=== PATIENT | female | born 1980 | race Caucasian/White ===

== ENCOUNTER → 2016-10-08 | Outpatient (REF) | payer OTHER ==
[~2016-10-08] MED LIST: /ONDA4TA; /TAMS4CA PO; AUG875 PO; BACT400T; BACT800T5 PO; CEPH500C; CIPR500T4; COMBIVENT PO; DILA2TAB; KEFLEX250 PO; KETO10TAB PO; MACR100C3 PO; MOTRIN800 PO; NASONEX NASAL; PERC2.5T PO; PERC5TAB PO; PERC5TAB6 PO; PERC5TAB8; PYRIDIUM; VALTREX100 PO; VICO5TAB; ZITHROZPAK PO; ZOFR4TAB3 PO; ZYRTEC10 PO; keflex PO; percocet PO; pyridium PO
== END ==
LOC: M LAB REF 16:34
PROVIDERS: ATTEND Surgery
DX: Z00.00 Encounter for general adult medical examination without abnormal findings (principal)

== ENCOUNTER → 2017-06-10 | Outpatient (REF) | payer OTHER ==
[~2017-06-10] MED LIST changes: +PERC5TAB12 PO; -PERC5TAB6 PO
== END ==
LOC: M SFHCWAGY 11:09
PROVIDERS: ATTEND Nurse Practitioner Women's Health
DX: Z12.4 Encounter for screening for malignant neoplasm of cervix (principal)

== ENCOUNTER 2018-05-25 13:28 | Emergency (ER) | payer OTHER ==
[2018-05-25 14:57] LABS: BASO # 0.1 10^3/uL (0.0-0.2); BASO % 0.8 % (0.0-1.0); EOS # 0.2 10^3/uL (0.0-0.50); EOS % 1.8 % (0.0-3.0); HEMATOCRIT 41.3 % (36.0-47.0); HEMOGLOBIN 13.7 g/dl (12.0-15.5); IMMATURE GRANULOCYTE % 0.5 % (0-3.0); LYMPH # 2.3 10^3/uL (1.5-4.5); MEAN CORPUSCULAR HEMOGLOBIN 29.3 pg (27.0-33.0); MEAN CORPUSCULAR HGB CONC 33.2 g/dl (32.0-36.5); MEAN CORPUSCULAR VOLUME 88.2 fl (80.0-96.0); MONO % 7.9 % (0.0-5.0); PLATELET COUNT, AUTOMATED 377 10^3/uL (150-450); RED BLOOD COUNT 4.68 10^6/uL (4.00-5.40); RED CELL DISTRIBUTION WIDTH 13.2 % (11.5-14.5); WHITE BLOOD COUNT 12.6 10^3/uL (4.0-10.0)
[2018-05-25 15:10] LABS: ANION GAP 6 MEQ/L (8-16); BLOOD UREA NITROGEN 15 MG/DL (7-18); C REACTIVE PROTEIN QUANTITATIV < 0.30 MG/DL (0.00-0.30); CALCIUM LEVEL 9.5 MG/DL (8.5-10.1); CARBON DIOXIDE LEVEL 24 MEQ/L (21-32); CHLORIDE LEVEL 111 MEQ/L (98-107); CREATININE FOR GFR 0.65 MG/DL (0.55-1.30); GLOMERULAR FILTRATION RATE > 60.0 (>60); GLUCOSE, FASTING 61 MG/DL (70-100); POTASSIUM SERUM 3.6 MEQ/L (3.5-5.1); SODIUM LEVEL 141 MEQ/L (136-145)
[2018-05-25 15:56] LABS: ERYTHROCYTE SEDIMENTATION RATE 11 mm/hr (0-20)
== END 2018-05-25 17:23 | disposition home or self-care (01) ==
LOC: M ED 13:28
DX: S90.32XA Contusion of left foot, initial encounter (principal); M77.32 Calcaneal spur, left foot; X58.XXXA Exposure to other specified factors, initial encounter; Y92.89 Other specified places as the place of occurrence of the external cause; F17.200 Nicotine dependence, unspecified, uncomplicated
CPT/HCPCS: 73650

== ENCOUNTER 2018-06-10 10:19 | Emergency (ER) | payer OTHER ==
[2018-06-10] MEDS: NORCO, ANEXSIA 5/325MG TABLET (HYDROcodone/ACETAMINOPHEN) PO (11:26)
[2018-06-10] MEDS: LIDOCAINE 1% MDV 20ML VIAL SC (11:30)
== END 2018-06-10 13:06 | disposition home or self-care (01) ==
LOC: M ED 10:19
DX: S51.812A Laceration without foreign body of left forearm, initial encounter (principal); S51.832A Puncture wound without foreign body of left forearm, initial encounter; W54.0XXA Bitten by dog, initial encounter; Y92.018 Other place in single-family (private) house as the place of occurrence of the external cause; Z88.0 Allergy status to penicillin; Z88.1 Allergy status to other antibiotic agents; F17.210 Nicotine dependence, cigarettes, uncomplicated
CPT/HCPCS: 73090

== ENCOUNTER 2018-08-24 00:37 | Emergency (ER) | payer OTHER ==
[2018-08-24] MEDS: DOXEPIN 10 MG CAP PO (01:34)
== END 2018-08-24 01:47 | disposition home or self-care (01) ==
LOC: M ED 00:37
DX: L29.9 Pruritus, unspecified (principal); I10 Essential (primary) hypertension
CPT/HCPCS: 99283

== ENCOUNTER 2019-12-03 12:49 | Emergency (ER) | payer OTHER ==
[~2019-12-03] VITALS: Ht 157.5 cm; Wt 72.7 kg
[~2019-12-03 12:49] MED LIST changes: -/ONDA4TA; -/TAMS4CA PO; +DIFL150T PO; +DOXE10CA PO; +DOXY100C37 PO; +FLAG500T PO; +FLOM0.4C39 PO; +IBUP-1022 PO; +LISI-542; +MELO15TA28; +ONDA-1; +ONDA-228 PO; +PARO15TA; +TRAZ-257; -ZOFR4TAB3 PO
[2019-12-03] MEDS ORDERED: ACET-683 PO ×2 (12:56→13:26)
[2019-12-03] MEDS ORDERED: ROBA750T4 PO (13:26)
[2019-12-03] MEDS ORDERED: IBUP-1022 PO (13:26)
[2019-12-03] MEDS ORDERED: KETOROLAC 60 MG/2 ML VIAL (J1885) IM ONE (13:30)
[2019-12-03 13:36] VITALS: BP 143/87
== END 2019-12-03 13:44 | disposition home or self-care (01) ==
LOC: M ED 12:49
DX: S16.1XXA Strain of muscle, fascia and tendon at neck level, initial encounter (principal); S13.4XXA Sprain of ligaments of cervical spine, initial encounter; V43.52XA Car driver injured in collision with other type car in traffic accident, initial encounter; Y92.9 Unspecified place or not applicable; Y93.9 Activity, unspecified; Y99.9 Unspecified external cause status; F41.9 Anxiety disorder, unspecified; F32.9 Major depressive disorder, single episode, unspecified; J45.909 Unspecified asthma, uncomplicated; Z87.59 Personal history of other complications of pregnancy, childbirth and the puerperium; Z96.0 Presence of urogenital implants; F17.200 Nicotine dependence, unspecified, uncomplicated; Z88.0 Allergy status to penicillin; Z88.1 Allergy status to other antibiotic agents; Z88.8 Allergy status to other drugs, medicaments and biological substances
CPT/HCPCS: 96372; 99283; J1885

== ENCOUNTER 2019-12-04 21:46 | Emergency (ER) | payer OTHER ==
[~2019-12-04] VITALS: Ht 157.5 cm; Wt 66.8 kg
[~2019-12-04 21:46] MED LIST changes: +ACET-683 PO; +ROBA750T4 PO
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
[2019-12-04 22:55] VITALS: BP 136/78
[2019-12-04] MEDS ORDERED: traMADol 50 MG TAB PO ONE (23:00)
== END 2019-12-04 22:57 | disposition home or self-care (01) ==
LOC: M ED 21:46
DX: S13.4XXA Sprain of ligaments of cervical spine, initial encounter (principal); X58.XXXA Exposure to other specified factors, initial encounter; Y92.89 Other specified places as the place of occurrence of the external cause; Z88.0 Allergy status to penicillin; Z88.1 Allergy status to other antibiotic agents; F17.210 Nicotine dependence, cigarettes, uncomplicated

== ENCOUNTER 2024-01-17 22:29 | Emergency (ER) | payer OTHER ==
[~2024-01-17] VITALS: Ht 157.5 cm; Wt 64.9 kg
[~2024-01-17 22:29] MED LIST changes: +DOXY-323 PO; -DOXY100C37 PO; -LISI-542; +LISI5TAB11; -PARO15TA; +PARO30TA4
[2024-01-17 22:30] VITALS: BP 169/101; TEMP 98.8; O2SAT 98
[2024-01-17] MEDS ORDERED: CLEO300C2 PO (23:26)
[2024-01-17] MEDS: IBUPROFEN 600MG TAB PO ONE (23:32)
[2024-01-17] MEDS: CLINDAMYCIN 150MG CAPSULE PO ONE (23:32)
== END 2024-01-17 23:39 | disposition home or self-care (01) ==
LOC: M ED 22:29
DX: J02.0 Streptococcal pharyngitis (principal); J45.909 Unspecified asthma, uncomplicated; F10.10 Alcohol abuse, uncomplicated; Z87.891 Personal history of nicotine dependence; Z88.0 Allergy status to penicillin; Z88.1 Allergy status to other antibiotic agents; Z88.8 Allergy status to other drugs, medicaments and biological substances; Z79.2 Long term (current) use of antibiotics

== ENCOUNTER 2024-05-07 15:21 | Emergency (ER) | payer OTHER ==
[~2024-05-07] VITALS: Ht 157.5 cm; Wt 79.9 kg
[~2024-05-07 15:21] MED LIST changes: +CLEO300C2 PO
[2024-05-07] MEDS: CYCLOBENZAPRINE 10MG TABLET PO ONE (16:53)
[2024-05-07] MEDS: KETOROLAC 60MG 2ML VIAL IM ONE (16:56)
[2024-05-07] MEDS ORDERED: CYCL-707 PO (18:48)
[2024-05-07] MEDS ORDERED: LIDO5DIS41 TD (18:48)
[2024-05-07 18:54] VITALS: BP 170/102; TEMP 98; O2SAT 97
[2024-05-07] MEDS ORDERED: CHLO125TA PO (18:57)
[2024-05-07] MEDS ORDERED: SERT25TA85 PO (18:57)
[2024-05-07] MEDS ORDERED: HYDR-3363 PO (18:57)
== END 2024-05-07 18:57 | disposition home or self-care (01) ==
LOC: M ED 15:21
DX: M62.838 Other muscle spasm (principal); M48.02 Spinal stenosis, cervical region; I10 Essential (primary) hypertension; Z76.0 Encounter for issue of repeat prescription; J45.909 Unspecified asthma, uncomplicated; R91.1 Solitary pulmonary nodule; F17.200 Nicotine dependence, unspecified, uncomplicated; F10.10 Alcohol abuse, uncomplicated; Z88.0 Allergy status to penicillin; Z88.1 Allergy status to other antibiotic agents; Z88.8 Allergy status to other drugs, medicaments and biological substances; Z79.899 Other long term (current) drug therapy
CPT/HCPCS: 72125; 96372; 99283; J1885

== ENCOUNTER 2025-02-01 16:31 | Emergency (ER) | payer OTHER ==
[~2025-02-01] VITALS: Ht 157.5 cm; Wt 73.3 kg
[~2025-02-01 16:31] MED LIST changes: +CHLO125TA PO; +CYCL-707 PO; -DOXY-323 PO; +DOXY-441 PO; +HYDR-3363 PO; +LIDO1ADH93 TD; +SERT25TA85 PO
[2025-02-01] MEDS: ACETAMINOPHEN 500 MG TAB PO ONE (18:20)
[2025-02-01 20:08] VITALS: BP 178/100; TEMP 97.7; O2SAT 100
[2025-02-01] MEDS ORDERED: PRED10TA2 PO (20:10)
[2025-02-01] MEDS: predniSONE 20 MG TAB PO ONE (20:15)
== END 2025-02-01 20:21 | disposition home or self-care (01) ==
LOC: M ED 16:31
DX: M72.2 Plantar fascial fibromatosis (principal); Z88.0 Allergy status to penicillin; Z88.1 Allergy status to other antibiotic agents; Z88.8 Allergy status to other drugs, medicaments and biological substances; Z79.52 Long term (current) use of systemic steroids
CPT/HCPCS: 73650; 99283; J7512